=== PATIENT | female | born 1995 | race African-American/Black ===

== ENCOUNTER 2020-10-28 17:45 | Emergency (ER) | payer SELFPAY ==
[~2020-10-28] VITALS: Ht 165.1 cm; Wt 80.0 kg
[2020-10-28] MEDS ORDERED: IBUPROFEN 600MG TABLET PO ONE (18:15)
[2020-10-28] MEDS: IBUPROFEN 800MG TABLET PO NR ×2 (18:37→19:56)
[2020-10-28 19:33] LABS: BASOPHILS % 0.5 % (0.0-2.0); EOSINOPHILS % 1.7 % (0.0-5.0); HEMATOCRIT. 39.9 % (36.0-48.0); HEMOGLOBIN. 12.7 g/dL (12.0-16.0); LYMPHOCYTES % 25.2 % (20.0-50.0); MEAN CORPUSCULAR HEMOGLOBIN 27.1 pg (28.0-32.0); MEAN CORPUSCULAR VOLUME 84.8 fL (81.0-99.0); MEAN PLATELET VOLUME 8.2 fl (7.4-10.4); MONOCYTES % 9.6 % (2.0-8.0); PLATELET 317 x1000/uL (130-400)
[2020-10-28 19:38] LABS: CHLORIDE 105 mEq/L (98-107)
[2020-10-28 19:41] LABS: HCG SCREEN NEGATIVE
[2020-10-28 19:43] LABS: PROTHROMBIN TIME 10.4 sec (9.6-11.0)
[2020-10-28 19:50] LABS: B-HCG QUANTITATIVE < 1 mIU/mL (<3)
[2020-10-28 21:00] VITALS: BP 115/67
== END 2020-10-28 21:00 | disposition home or self-care (01) ==
LOC: ER 17:45
DX: D25.9 Leiomyoma of uterus, unspecified (principal); R03.0 Elevated blood-pressure reading, without diagnosis of hypertension
CPT/HCPCS: 36415; 76856; 80053; 84702; 84703; 85025; 86850; 86900; 99284

== ENCOUNTER 2021-08-06 13:05 | Emergency (ER) | payer MEDICAID ==
[~2021-08-06] VITALS: Ht 165.1 cm; Wt 100.0 kg
[2021-08-06] MEDS ORDERED: FERR236T3 PO (13:17)
[2021-08-06] MEDS ORDERED: DOCU-332 PO (13:17)
[2021-08-06 15:30] LABS: CHLORIDE 105 mEq/L (98-107)
[2021-08-06 15:31] LABS: BASOPHILS % 0.8 % (0.0-2.0); EOSINOPHILS % 0.8 % (0.0-5.0); HEMATOCRIT. 42.3 % (36.0-48.0); HEMOGLOBIN. 13.5 g/dL (12.0-16.0); LYMPHOCYTES % 30.4 % (20.0-50.0); MEAN CORPUSCULAR HEMOGLOBIN 26.4 pg (28.0-32.0); MEAN CORPUSCULAR VOLUME 82.7 fL (81.0-99.0); MEAN PLATELET VOLUME 8.8 fl (7.4-10.4); MONOCYTES % 7.2 % (2.0-8.0); NEUTROPHILS % 60.8 % (40.0-76.0); PLATELET 360 x1000/uL (130-400); RED BLOOD CELL COUNT 5.11 mill/uL (4.2-5.4); RED CELL DISTRIBUTION WIDTH 13.6 % (11.6-14.6)
[2021-08-06 16:53] LABS: CLARITY URINE CLEAR (CLEAR); COLOR URINE YELLOW (YELLOW); KETONES URINE NEGATIVE (NEGATIVE); LEUKOCYTE ESTERASE URINE NEGATIVE (NEGATIVE); NITRITE URINE NEGATIVE (NEGATIVE); OCCULT BLOOD URINE NEGATIVE (NEGATIVE); PH URINE 5.5 (4.5-8.0); PROTEIN URINE NEGATIVE (NEGATIVE); SPECIFIC GRAVITY URINE 1.008 (1.005-1.030); UROBILINOGEN URINE 0.2 E.U./dL (0.2-1.0)
[2021-08-06 16:55] LABS: HCG SCREEN NEGATIVE
[2021-08-06 17:24] VITALS: BP 123/76
== END 2021-08-06 17:25 | disposition home or self-care (01) ==
LOC: ER 13:05
DX: D25.9 Leiomyoma of uterus, unspecified (principal); D64.9 Anemia, unspecified
CPT/HCPCS: 36415; 80048; 81003; 81025; 84703; 85025; 86850; 86900; 99283

== ENCOUNTER 2022-05-15 13:52 | Emergency (ER) | payer MEDICAID ==
[~2022-05-15] VITALS: Ht 162.6 cm; Wt 95.0 kg
[~2022-05-15 13:52] MED LIST: DOCU-332 PO; FERR236T3 PO
[2022-05-15 14:01] VITALS: BP 126/86
[2022-05-15] MEDS ORDERED: ONDANSETRON 4MG ODT PO ONE (15:15)
== END 2022-05-15 23:30 | disposition left against medical advice (07) ==
LOC: ER 14:39
DX: R51.9 Headache, unspecified (principal); Z91.81 History of falling
CPT/HCPCS: 99281